=== PATIENT | female | born 1975 | race Caucasian/White ===

== ENCOUNTER 2020-05-29 13:05 | Emergency (ER) | payer SELFPAY ==
--- NOTE | ~2020-05-29 | XR_ITS ---
EXAMINATION: XR chest 2V DATE: 05/29/2020 13:46 INDICATION: Tachycardia. Chest pain. Cough. TECHNIQUE: PA and lateral views of the chest were obtained. COMPARISON: None FINDINGS: The lungs are clear with no focal airspace opacities, pulmonary edema, pleural effusion or pneumothor ax. The cardiomediastinal silhouette is normal. Cholecystectomy clips in right upper quadrant. Mild t horacic spondylosis. IMPRESSION: 1. No acute cardiopulmonary disease. Reviewed, dictated and finalized at location A. [employer]
[2020-05-29 13:20] VITALS: BP 136/79; PULSE 105; RESP 24; TEMP 37.7; O2SAT 99
--- NOTE | 2020-05-29 13:35 | ECG_ITS ---
Measurements Intervals [place] Rate: 101 P: 72 NH: 151 QRS: 77 QRSD: 89 T: 62 QT: 358 QTc: 465 Interpretive Statements SINUS TACHYCARDIA MINIMAL Q WAVES- INFERIOR LEADS BORDERLINE ST-T WAVE ABNORMALITY- ANT/INF LEADS BORDERLINE ECG Electronically Signed On 05-29-2020 14:51:28 [employer] by Agustín Valente D.O.
--- NOTE | 2020-05-29 13:35 | ED.GENADULT ---
HPI - General Adult General Chief complaint: Chest Pain Stated complaint: Shakes Heart racing Time Seen by Provider: 05/29/20 13:29 Source: patient and RN notes reviewed Mode of arrival: ambulatory Limitations: no limitations History of Present Illness HPI narrative: 44 year old female who [facility] with complaints of heart racing with chest pain which is aggravated by deep inspiration starting this morning and feeling some shortness of breath earlier today. Patient states that she used her inhaler earlier today and has noted some decrease in her shortness of breath. Patient also reports having sinus congestion,clear nasal drainage and hoarseness with cough since yesterday. Patient states that she continues to feels shaky and when she was at work earlier they called an ambulance and they told her that was from using her inhaler but continues though it has been over 1 1/2 hours since she used her inhaler. Patient reports her chest pain to be midsternal in nature rates it 7-9, denies any nausea, no diaphoresis or any radiation of her pain. MD complaint: chest pain aggravated by deep inspiration, palpitations Onset (ago): hour(s) (1-3 in duration) Location: chest Radiation: non-radiation Severity: severe Severity scale (1-10): 7 (rates it 7-9) Quality: aching and sharp Pain Consistency: intermittent Relieving factors: none Exacerbating factors: other (deep inspiration) Associated symptoms: chest pain, cough, shortness of breath and other (nasal congestion and drainage) Treatments prior to arrival: other (used inhaler X1 this morning) Related Data Home Medications Medication Instructions Recorded Confirmed albuterol 2 mcg INHALATION Q4-6H PRN 05/29/20 05/29/20 escitalopram oxalate 20 mg PO DAILY 05/29/20 05/29/20 Allergies Allergy/AdvReac Type Severity Reaction Status Date / Time No Known Allergies Allergy Verified 05/29/20 13:41 Review of Systems Review of Systems: Narrative: CONSTITUTIONAL: Denies fever, chills, or sweats. EYES: Denies visual changes, redness, or discharge. ENT: Positive rhinorrhea, congestion, sore throat, no otalgia. CARDIOVASCULAR: Positive midsternal chest pain, increases with deep inspiration, positive palpitations, no edema. RESPIRATORY: Positive for cough or dyspnea. GASTROINTESTINAL: Denies abdominal pain, nausea, vomiting, or diarrhea. GENITOURINARY: Denies dysuria or hematuria. SKIN: Denies rash or itching. MUSCULOSKELETAL: Denies back pain, joint pain, or myalgia. NEUROLOGIC: Denies headache, numbness, or weakness. PSYCHIATRIC: Positive history of anxiety or depression. All systems reviewed & are unremarkable except as noted in HPI and below PMFSH Past Medical History Medical History (Updated 05/30/20 @ 13:49 by Camilla Nunez NP) Asthma Depression Surgical History Surgical History (Updated 05/29/20 @ 13:40 by Camilla Nunez NP) History of hysterectomy Hx of cholecystectomy Family History Family History (Updated 05/29/20 @ 14:10 by Camilla Nunez NP) Mother Breast cancer Heart disease Father Heart disease Social History Social History (Updated 05/29/20 @ 13:41 by Camilla Nunez NP) Smoking packs per day: 0.5 Smoking cigarettes per day: 10.0 Years smoked: 30 Smoking pack-years: 15.00 Smoking status: Current every day smoker Tobacco type: cigarettes Living arrangements: with family Gender identity (if verbalized by the patient): Female Comments At time of signature, agree with nursing past medical, surgical, social and family history. There is no relevant family history pertinent to the presenting complaint Exam Narrative: Exam Narrative: GENERAL: Well-appearing, well-nourished, and in mild distress, shakiness HEAD: Normocephalic, atraumatic. EYES: PERRLA and EOMI. ENT: Nares patent,clear rhinorrhea no epistaxis. Mucous membranes moist.TM's normal with good light reflex, throat pink with no lesions or exudate, no tonsil en
[2020-05-29 14:26] VITALS: PULSE 95; RESP 20
[2020-05-29] MEDS: ASPIRIN 81 MG CHEWABLE TABLET 324 MG PO (14:26)
== END 2020-05-29 14:26 | disposition short-term general hospital (02) ==
PROVIDERS: Emergency Provider Registered Nurse
DX: R07.9 Chest pain, unspecified (principal); Z20.822 Contact with and (suspected) exposure to COVID-19; F17.210 Nicotine dependence, cigarettes, uncomplicated; J45.909 Unspecified asthma, uncomplicated; F32.9 Major depressive disorder, single episode, unspecified
CPT/HCPCS: 71046; 87081; 87426; 87804; 87880; 93005; 99213; A9270; C9803; G0463

== ENCOUNTER 2020-10-31 13:06 | Emergency (ER) | payer MEDICARE, SELFPAY ==
[2020-10-31 13:15] VITALS: BP 126/80; PULSE 91; RESP 18; TEMP 36.8; O2SAT 99
--- NOTE | 2020-10-31 13:47 | ED.URI ---
HPI - URI/Sore Throat General Chief Complaint: Upper Respiratory Infection Stated Complaint: headache chest and cough Time Seen by Provider: 10/31/20 13:40 Source: patient and RN notes reviewed Mode of arrival: ambulatory Limitations: no limitations History of Present Illness HPI Narrative: 45-year-old female with history of asthma, smoking presents with concern for cough, shortness of breath that is not improving. Reports she was seen in the emergency room several days ago and told she had an upper respiratory infection. She was given prescription cough medicine and told to take Mucinex. She reports symptoms have not been improving and have been getting worse. She reports sweats, body aches. She denies fever, nausea, vomiting. Reports she had diarrhea several days ago. She reports rhinorrhea, nasal congestion, headache. She denies loss of taste or smell. Reports she had 2 negative Covid test within this last week. MD elicited complaint: cough Related Data Home Medications Medication Instructions Recorded Confirmed albuterol 2 mcg INHALATION Q4-6H PRN 05/29/20 10/31/20 escitalopram oxalate 20 mg PO DAILY 05/29/20 10/31/20 Allergies Allergy/AdvReac Type Severity Reaction Status Date / Time Penicillins Allergy Diarrhea Verified 10/31/20 13:24 tramadol Allergy Unknown Verified 10/31/20 13:24 Review of Systems Review of Systems: Narrative: CONSTITUTIONAL: Reports malaise, sweats. Denies chills or fever. EYES: Denies visual changes, redness, or discharge. ENT: Reports rhinorrhea, congestion. Denies sinus pain, otalgia and sore throat. CARDIOVASCULAR: Denies chest pain, palpitations, or edema. RESPIRATORY: Reports cough, dyspnea. GASTROINTESTINAL: Denies abdominal pain, nausea, vomiting, diarrhea SKIN: Denies rash or itching. MUSCULOSKELETAL: Denies myalgia. NEUROLOGIC: Reports headache. All systems reviewed & are unremarkable except as noted in HPI and below PMFSH Past Medical History Medical History (Updated 10/31/20 @ 14:41 by Roseanna Martinez NP) Asthma Depression Surgical History Surgical History (Updated 05/29/20 @ 13:40 by Camilla Nunez NP) History of hysterectomy Hx of cholecystectomy Family History Family History (Updated 05/29/20 @ 14:10 by Camilla Nunez NP) Mother Breast cancer Heart disease Father Heart disease Social History Social History (Updated 05/29/20 @ 13:41 by Camilla Nunez NP) Smoking packs per day: 0.5 Smoking cigarettes per day: 10.0 Years smoked: 30 Smoking pack-years: 15.00 Smoking status: Current every day smoker Tobacco type: cigarettes Gender identity (if verbalized by the patient): Female Comments At time of signature, agree with nursing past medical, surgical, social and family history. There is no relevant family history pertinent to the presenting complaint Exam Narrative: Exam Narrative: GENERAL: Well-appearing, well-nourished, and in no acute distress. HEAD: Normocephalic EYES: PERRLA, conjunctivae clear ENT: Nares clear, turbinates erythematous, clear discharge. Mucous membranes moist. TM pearly lance with dull light reflex bilaterally; no tragal tenderness. Oropharynx not erythematous without lesions. Tonsils not enlarged and without exudate, no drooling, no hoarseness, no trismus, uvula midline. NECK: Supple. No lymphadenopathy CHEST: Scattered inspiratory and expiratory wheeze, scattered rhonchi, aeration fair, breath sounds equal. No rales, or stridor. No respiratory distress, speaks in full sentences. HEART: Regular rate and rhythm. No murmur heard. SKIN: Warm, dry, no rash. NEURO: Alert and oriented x3. PSYCH: Normal mood and affect Course Course Emergency Course: Patient is aware of diagnosis, understands and agrees to treatment plan. Anticipatory guidance given. Patient agrees to follow-up as directed and is aware of reasons to seek care at the emergency department. Portions of this record may have been created wit
[2020-10-31] MEDS: IPRATROPIUM BR 0.02% INH SOLN 0.5 MG/2.5 ML VIAL INHALATION (13:57)
[2020-10-31] MEDS: ALBUTEROL SULFATE NEB 2.5 MG/3 ML INH INHALATION (13:58)
== END 2020-10-31 14:44 | disposition home or self-care (01) ==
PROVIDERS: Emergency Provider Nurse Practitioner
DX: J40 Bronchitis, not specified as acute or chronic (principal); R09.89 Other specified symptoms and signs involving the circulatory and respiratory systems; F17.210 Nicotine dependence, cigarettes, uncomplicated; J45.909 Unspecified asthma, uncomplicated; F32.9 Major depressive disorder, single episode, unspecified
CPT/HCPCS: 99213; G0463

== ENCOUNTER 2024-03-04 08:21 | Emergency (ER) | payer OTHER, SELFPAY ==
--- NOTE | ~2024-03-04 | XR_ITS ---
EXAMINATION: XR chest 2V DATE: 03/04/2024 08:53 INDICATION: Syncope. Right lower quadrant abdominal pain. TECHNIQUE: Frontal and lateral views of the chest were obtained. COMPARISON: Chest 2 views 05/29/2020 FINDINGS: There is no pneumonia, pleural effusion, or pneumothorax. The heart size is normal. IMPRESSION: 1. No acute cardiopulmonary disease. Reviewed, dictated and finalized at location A.
--- NOTE | ~2024-03-04 | CT_ITS ---
CT abdomen pelvis w con Ordering provider: Darell Talley MD History: 48 years Female with . rlq pain . Comparison: None. Technique: CT abdomen and pelvis with IV and without oral contrast. Automated exposure control and it erative reconstruction technique were employed. The dose-length product was 528.36 mGy-cm. 100 mL Omn ipaque 350 was given IV. Findings: VISUALIZED LOWER CHEST: Normal. UPPER ABDOMINAL ORGANS: Liver: Hepatomegaly. The liver measures 21 cm. Gallbladder: Status post cholecystectomy. Spleen: Normal. Stomach/duodenum: Normal. Pancreas: Normal. Adrenals: Normal. Kidneys: Normal. PELVIC ORGANS: The bladder is normal. BOWEL AND MESENTERY: Colon: No evidence diverticulitis. Extremity loaded in the colon suggestive of constipation. Normal a ppendix. Small Bowel: Normal. No obstruction. Peritoneum/mesentery: No free air or free fluid. No mesenteric lymphadenopathy. RETROPERITONEUM: Mild atheromatous disease of the abdominal aorta. No retroperitoneal lymphadenopat hy. MUSCULOSKELETAL: Superficial soft tissues: Minimal fat stranding in the medial aspect of the buttocks. Clinical correl ation advised. Otherwise, The superficial soft tissues are normal. Bones: Age appropriate degenerative changes of the spine. IMPRESSION: 1. No acute abdominal process with no evidence of appendicitis, diverticulitis or intestinal obstruc tion. 2. Constipation. 3. Hepatomegaly. Reviewed, dictated and finalized at location A. IMPRESSION: 1. No acute abdominal process with no evidence of appendicitis, diverticulitis or intestinal obstruction. 2. Constipation. 3. Hepatomegaly.
--- NOTE | 2024-03-04 08:25 | PC.NURSE ---
Ems reports pt had 8mg morphine IVP en route. Pt coming from work when she tried to have BM and does not remember rest of event. States she was having abd pain, feeling diaphoretic. Pt reports hx of cholecystectomy & hysterectomy. A&ox4 at this time. RLQ pain radiates to L shoulder.
[2024-03-04 08:30] VITALS: BP 140/81; PULSE 88; RESP 15; TEMP 36.6; O2SAT 99
--- NOTE | 2024-03-04 08:31 | ECG_ITS ---
Test Date: 2024-03-04 08:30:57 Measurements Intervals [place] Rate: 88 P: 25 [place]: 131 QRS: 74 QRSD: 95 T: 56 QT: 361 QTc: 437 Interpretive Statements SINUS RHYTHM No previous ECG available for comparison Electronically Signed On 03-04-2024 09:44:00 CDT by Germán Harmon M.D.
[2024-03-04 08:40] LABS: Basophils Absolute Auto 0.1 K/mm3 (0.0-0.1); Basophils Percent Auto 0.6 % (0.2-1.2); Eosinophils Absolute Auto 0.2 K/mm3 (0-0.3); Eosinophils Percent Auto 2.1 % (0-4.4); Hematocrit 42.6 % (37.0-47.0); Hemoglobin 14.1 g/dL (12.0-15.0); Immature Granulocyte Absolute 0.04 K/mm3 (0.00-0.031); Immature Granulocyte Percent A 0.5 % (0-0.5); Lymphocytes Absolute Auto 2.67 K/mm3 (0.9-3.2); Lymphocytes Percent Auto 31.1 % (18.3-44.2); Mean Corpuscular HGB Conc 33.1 g/dl (32-36); Mean Corpuscular Hemoglobin 30.3 pg (26-34); Mean Corpuscular Volume 91.4 fl (80-100); Mean Platelet Volume 10.3 fl (7.4-10.4); Monocytes Absolute Auto 0.4 K/mm3 (0.1-0.6); Neutrophils Absolute Auto 5.2 K/mm3 (1.3-6.7); Neutrophils Percent Auto 60.7 % (45.5-73.1); Platelet Count Result 253 k/mm3 (150-375); Red Blood Count 4.66 M/mm3 (4.2-5.4); Red Cell Distribution Width 11.7 % (11.5-14.5); White Blood Count 8.6 K/mm3 (4.5-10.0)
[2024-03-04 08:51] LABS: Alanine Aminotransferase 36 U/L (6-35); Albumin Level 4.6 g/dL (3.5-5.1); Alkaline Phosphatase 81 U/L (38-126); Anion Gap 12 mmol/L (4-12); Aspartate Amino Transferase 37 U/L (14-36); Bilirubin,Total 0.8 mg/dL (0.2-1.3); Blood Urea Nitrogen 13 mg/dL (7-17); Calcium 9.4 mg/dL (8.4-10.2); Carbon Dioxide 19 mmol/L (22-30); Chloride 104 mmol/L (98-107); Estimated CRCL calculation 96 ml/min; Estimated Glomerular Filt Rate > 60; Glucose 163 mg/dL (65-110); Potassium 4.1 mmol/L (3.4-5.0); Sodium 135 mmol/L (137-145)
[2024-03-04 09:07] LABS: Ethanol < 10 mg/dL (<10)
--- NOTE | 2024-03-04 09:34 | ED_ITS ---
HPI - Abdominal Pain General Chief Complaint: Abdominal Pain Stated Complaint: abd pain Time Seen by Provider: 03/04/24 08:31 Source: patient Mode of arrival: EMS Limitations: no limitations History of Present Illness HPI narrative: 48 year old with a history of asthma here with a complaint of having syncopal episode while she was at work. Patient states that she was using the restroom all of sudden she had severe pain in the right lower abdomen and soon after that she passed out for few seconds. She denies any head injuries. No history of chest pain and shortness of breath. MD elicited complaint: abdominal pain Pertinent past history: none Pain Consistency: constant Location: RLQ Severity: mild Quality: cramping Migration to: no migration Exacerbating factors: nothing Relieving factors: nothing Associated symptoms: denies other symptoms Related Data Home Medications Medication Instructions Recorded Confirmed albuterol 90 mcg/actuation aerosol 2 mcg inhalation Q4-6H PRN sob 05/29/20 inhaler escitalopram oxalate 20 mg tablet 20 mg PO DAILY 05/29/20 10/31/20 Allergies Allergy/AdvReac Type Severity Reaction Status Date / Time Penicillins Allergy Diarrhea Verified 10/31/20 13:24 tramadol Allergy Unknown Verified 10/31/20 13:24 Review of Systems Review of Systems: All systems reviewed & are unremarkable except as noted in HPI and below Constitutional: Constitutional: Reports no additional constitutional c omplaints Eyes: Eyes: Reports no additional eye complaints ENT: Reports system reviewed and no additional complaints, except as documented Respiratory: Respiratory: Reports no additional respiratory complaints Gastrointestinal: Gastrointestinal: Reports as per HPI Musculoskeletal: Musculoskeletal: Reports no additional musculoskeletal complaints Neurologic: Reports system reviewed and no additional complaints, except as documented Psychiatric: Psychiatric: Reports no additional psychiatric complaints [facility] Past Medical History Medical History Asthma Depression Surgical History Surgical History History of hysterectomy Hx of cholecystectomy Family History Family History Mother Breast cancer Heart disease Father Heart disease Social History Social History Smoking packs per day: 0.5 Smoking cigarettes per day: 10.0 Years smoked: 30 Smoking pack-years: 15.00 Smoking status: Current every day smoker Tobacco type: cigarettes Living arrangements: with family Gender identity (if verbalized by the patient): Female Exam Narrative: GENERAL: Well-appearing, well-nourished, and in no acute distress. HEAD: Normocephalic, atraumatic. EYES: PERRLA and EOMI. ENT: Nares clear, no rhinorrhea or epistaxis. NECK: Supple. CHEST: Clear to auscultation. No respiratory distress. HEART: Regular rate and rhythm. No murmur heard. Normal peripheral pulses. ABDOMEN: Soft, nontender, nondistended, normal active bowel sounds. EXTREMITIES: Normal range of motion. No edema. SKIN: Warm, dry, no rash. NEURO: No focal deficits. Alert and oriented x3. PSYCH: Normal mood and affect. Course Course Emergency Course: Patient comfortably resting on the bed in no discomfort informed her and family about her lab work, EKG and CT findings. Advised her to take laxative as prescribed Vital Signs Vital signs: Vital Signs Temperature 36.6 C 03/04/24 08:30 Pulse Rate 88 03/04/24 08:30 Respiratory Rate 15 03/04/24 08:30 Blood Pressure 140/81 03/04/24 08:30 Pulse Oximetry 99 03/04/24 08:30 Oxygen Delivery Room Air 03/04/24 08:30 Temperature 36.6 C 03/04/24 08:30 Pulse Rate 88 03/04/24 08:30 Respiratory Rate 15 03/04/24 08:30 Blood Pressure 140/81 03/04/24 08:30 Pulse Oximetry 99 03/04/24 08:30 Oxygen Delivery Room Air 03/04/24 08:30 MDM - Abdominal Pain MDM Narrative Medical decision making narrative: 48-year-old otherwise healthy here with a complaint of sudden onset of right lo wer abdominal pain associated with some syncopal episode while she was at work. Exam is unremarkable except for mild tenderness in the right lower abdomen. She does not have gallbladder. Developed who lab work and CT of the abdomen. Her EKG is unremarkable. I suspect the cause of her syncopal episode is most likely vasovagal. Differential Diagnosis Differential diagnosis: Likely abdominal pain, calculus of kidney, gastroenteritis and small bowel obstruction Medical Records Attestation: I reviewed the patient's medical records. Lab Data Attestation: I reviewed the patient's lab results. 03/04/24 08:36 03/04/24 08:36 Labs: Lab Results 03/04/24 03/04/24 Range/Units 08:35 08:36 WBC 8.6 (4.5-10.0) K/mm3 RBC 4.66 (4.2-5.4) M/mm3 Hgb 14.1 (12.0-15.0) g/dL Hct 42.6 (37.0-47.0) % MCV 91.4 (80-100) fl MCH 30.3 (26-34) pg MCHC 33.1 (32-36) g/dl RDW 11.7 (11.5-14.5) % Plt Count 253 (150-375) k/mm3 MPV 10.3 (7.4-10.4) fl Immature Gran % (Auto) 0.5 (0-0.5) % Neut % (Auto) 60.7 (45.5-73.1) % Lymph % (Auto) 31.1 (18.3-44.2) % [place] % (Auto) 5.0 (2.6-8.5) % Eos % (Auto) 2.1 (0-4.4) % Baso % (Auto) 0.6 (0.2-1.2) % Lymph # (Auto) 2.67 (0.9-3.2) K/mm3 [place] # (Auto) 0.4 (0.1-0.6) K/mm3 Eos # (Auto) 0.2 (0-0.3) K/mm3 Baso # (Auto) 0.1 (0.0-0.1) K/mm3 Abs Immat Gran (auto) 0.04 H (0.00-0.031) K/mm3 Absolute Neuts (auto) 5.2 (1.3-6.7) K/mm3 Absolute Nucleated RBC 0.000 (0.0-0.012) K/mm3 Nucleated RBC % 0.0 (0.0-0.2) % Sodium 135 L (137-145) mmol/L Potassium 4.1 (3.4-5.0) mmol/L Chloride 104 (98-107) mmol/L Carbon Dioxide 19 L (22-30) mmol/L Anion Gap 12 (4-12) mmol/L BUN 13 (7-17) mg/dL Creatinine 0.60 L (0.7-1.0) mg/dL Estim Creat Clear Calc 96 ml/min Estimated GFR > 60 (59 - ) Glucose 163 H (65-110) mg/dL Calcium 9.4 (8.4-10.2) mg/dL Total Bilirubin 0.8 (0.2-1.3) mg/dL AST 37 H (14-36) U/L ALT 36 H (6-35) U/L Alkaline Phosphatase 81 (38-126) U/L Total Protein 8.0 (6.3-8.2) g/dL Albumin 4.6 (3.5-5.1) g/dL Ethyl Alcohol < 10 (<10) mg/dL Imaging Data Radiologist's impression: ITS Impressions Chest X-Ray 03/04/24 08:59 IMPRESSION: 1. No acute cardiopulmonary disease. Abdomen/Pelvis CT 03/04/24 09:07 IMPRESSION: 1. No acute abdominal process with no evidence of appendicitis, diverticulitis or intestinal obstruction. 2. Constipation. 3. Hepatomegaly. ECG Data EKG #1: ECG completion date: 03/04/24 ECG completion time: 08:30 normal rate (88), no ectopy, no ST changes and normal QRS Discharge Plan Discharge Clinical Impression: Abdominal pain, RLQ (right lower quadrant), Vasovagal syncope Constipation Qualifiers: Constipation type: unspecified constipation type Qualified Code(s): K59.00 - Constipation, unspecified Patient Disposition: Home, Self-Care Condition: Stable Instructions: Syncope (DC), Abdominal Pain (ED) Prescriptions: New polyethylene glycol 3350 [Miralax] 17 gram/dose powder 17 g PO DAILY Qty: 238 0RF No Action albuterol 90 mcg/actuation Aerosol 2 mcg INHALATION Q4-6H PRN (Reason: sob) escitalopram oxalate 20 mg tablet 20 mg PO DAILY prednisone 20 mg tablet 40 mg PO DAILY 5 Days Qty: 10 0RF doxycycline monohydrate 100 mg tablet 100 mg PO BID 7 Days Qty: 14 0RF albuterol sulfate 90 mcg/actuation HFA aerosol inhaler 2 puff INHALATION QID PRN (Reason: shortness of breath or wheezing) Qty: 8.5 0RF Follow-up/Referrals: Xavier Fisher MD [Physician] - UNKNOWN,DOCTOR [Primary Care Provider] - Time of Disposition: 09:37
[2024-03-04 09:37] VITALS: BP 126/81; PULSE 85; RESP 15; O2SAT 97
== END 2024-03-04 09:53 | disposition home or self-care (01) ==
PROVIDERS: Emergency Provider Family Medicine
DX: R55 Syncope and collapse (principal); K59.00 Constipation, unspecified; R10.31 Right lower quadrant pain; J45.909 Unspecified asthma, uncomplicated; F32.A Depression, unspecified; F17.210 Nicotine dependence, cigarettes, uncomplicated; Z90.710 Acquired absence of both cervix and uterus; Z90.49 Acquired absence of other specified parts of digestive tract; Z79.899 Other long term (current) drug therapy; Z79.52 Long term (current) use of systemic steroids; R16.0 Hepatomegaly, not elsewhere classified
CPT/HCPCS: 36415; 71046; 74177; 80053; 82077; 85025; 93005; 99284; Q9967